=== PATIENT | male | born 1995 | race Caucasian/White ===

== ENCOUNTER 2021-08-15 21:29 | Emergency (ER) | payer SELFPAY ==
[2021-08-15] MEDS ORDERED: Lidocaine 1% w/Epinephrine 1:100K 20 ML VIAL ONE (22:41)
[2021-08-15] MEDS ORDERED: Boostrix 0.5 ML (Tdap) VIAL ONE (22:41)
[2021-08-15] MEDS ORDERED: Bacitracin 1 PK ONE (23:21)
== END 2021-08-15 23:20 | disposition home or self-care (01) ==
LOC: CSHERS 21:29
DX: S61.412A Laceration without foreign body of left hand, initial encounter (principal); F17.210 Nicotine dependence, cigarettes, uncomplicated; W26.0XXA Contact with knife, initial encounter; Y99.0 Civilian activity done for income or pay; Z23 Encounter for immunization
CPT/HCPCS: 12013; 90471; 90715

== ENCOUNTER 2025-05-29 20:46 | Emergency (ER) | payer SELFPAY ==
[2025-05-29] MEDS ORDERED: Ketorolac Tromethamine 30 MG (1 mL) VIAL ONE (21:49)
== END 2025-05-29 22:33 | disposition home or self-care (01) ==
LOC: CSHERS 20:46
DX: S80.02XA Contusion of left knee, initial encounter (principal); F17.210 Nicotine dependence, cigarettes, uncomplicated; V18.0XXA Pedal cycle driver injured in noncollision transport accident in nontraffic accident, initial encounter
CPT/HCPCS: 96372; 99283; J1885